=== PATIENT | female | born 1960 | race Caucasian/White ===

== ENCOUNTER → 2016-05-20 | Outpatient (CLI) | payer BC ==
[~2016-05-20] MED LIST: ASPI-482 PO; ATOR40TA PO; INSU100C SQ; INSU100V13 SQ; LIRA0.6P2 SQ; METF10002 PO
--- NOTE | 2016-05-20 08:55 | KCIC ---
PROCEDURE DEXA scan 05/20/2016 HISTORY Postmenopausal female. Risk factors for osteoporosis. TECHNIQUE DEXA of the lumbar spine and left hip was performed. FINDINGS The mean bone mineral density of the lumbar spine is 0.867 grams/centimeters squared. This corresponds to a T-score of-1.6. This is consistent with mild to moderate osteopenia. The mean bone mineral density of the left hip is 1.019 grams/centimeters squared. This corresponds to a T-score of 0.6. This is within normal limits. IMPRESSION 1. The mean bone mineral density of the left hip is within normal limits. 2. Mild to moderate osteopenia of the lumbar spine. Electronically signed by: Isacc Richards MD (May 20, 2016 08:54:15)
== END | disposition home or self-care (01) ==
LOC: KCIC DEXA 07:54
PROVIDERS: ATTEND Internal Medicine
DX: Z13.820 Encounter for screening for osteoporosis (principal); Z78.0 Asymptomatic menopausal state; E11.9 Type 2 diabetes mellitus without complications; M85.80 Other specified disorders of bone density and structure, unspecified site
CPT/HCPCS: 77080

== ENCOUNTER 2016-08-24 16:22 | Emergency (ER) | payer BC ==
[~2016-08-24] VITALS: Ht 152.4 cm; Wt 82.1 kg
[2016-08-24 17:09] VITALS: BP 154/80
--- NOTE | 2016-08-24 17:28 | PHYS DOC ---
Past Medical History Past Medical History: No Pertinent History Past Surgical History: Appendectomy, Cholecystectomy Alcohol Use: None Drug Use: None Adult General Chief Complaint Chief Complaint: FOOT INJURY PAIN HPI HPI Patient is a 55 year old female presents emergency department stating that she was walking in the yard when she cut her foot in a hole and twisted her left ankle. Patient states she has been unable to ambulate on the ankle since this occurred. She has not been able to put any weight on the foot. She denies any numbness or tingling into the toes. She does have good sensation peripheral pulses are 2+ cap refill brisk less than 2 seconds. All information was obtained through stretch box tender at bedside. Review of Systems Review of Systems Constitutional: Denies fever or chills [] Eyes: Denies change in visual acuity, redness, or eye pain [] HENT: Denies nasal congestion or sore throat [] Respiratory: Denies cough or shortness of breath [] Cardiovascular: No additional information not addressed in HPI [] GI: Denies abdominal pain, nausea, vomiting, bloody stools or diarrhea [] : Denies dysuria or hematuria [] Musculoskeletal: Denies back pain. Left ankle and foot pain. Denies knee pain Integument: Denies rash or skin lesions [] Neurologic: Denies headache, focal weakness or sensory changes [] Current Medications Current Medications Current Medications Medications (Trade) Dose Ordered Sig/Scott Start Time Stop Time Status Last Admin Dose Admin Ibuprofen (Motrin) 600 mg 1X ONCE 08/24/16 17:30 08/24/16 17:31 DC 08/24/16 17:33 600 MG Allergies Allergies Allergies Coded Allergies Type Severity Reaction Last Updated Verified No Known Drug Allergies 08/24/16 No Physical Exam Physical Exam Constitutional: Well developed, well nourished, no acute distress, non-toxic appearance. [] HENT: Normocephalic, atraumatic, bilateral external ears normal, oropharynx moist, no oral exudates, nose normal. [] Eyes: PERRLA, EOMI, conjunctiva normal, no discharge. [] Neck: Normal range of motion, no tenderness, supple, no stridor. [] Cardiovascular:Heart rate regular rhythm, no murmur [] Lungs & Thorax: Bilateral breath sounds clear to auscultation [] Skin: Warm, dry, no erythema, no rash. [] Back: No tenderness Extremities: Left ankle and foot tenderness, no cyanosis, no clubbing, ROM intact, no edema. Slight swelling noted. No discoloration or bruising noted. Peripheral pulses 2+ cap refill brisk less than 2 seconds. Neurologic: Alert and oriented X 3, normal motor function, normal sensory function, no focal deficits noted. [] Psychologic: Affect normal, judgement normal, mood normal. [] Current Patient Data Vital Signs Vital Signs Date Time Temp Pulse Resp B/P Pulse Ox O2 Delivery O2 Flow Rate FiO2 08/24/16 17:09 98.4 84 20 99 Room Air 98.4 EKG EKG [] Radiology/Procedures Radiology/Procedures [] Course & Med Decision Making Course & Med Decision Making Pertinent Labs and Imaging studies reviewed. (See chart for details) Ankle and foot x-ray were negative per Dr. Donaldson. Patient will be placed in Matteo wrap and an Air-Stirrup splint for support. Patient will be recommended to use ibuprofen 800 mg every 8 hours with food for pain and discomfort. Ice packs on 20 minutes off 20 minutes several times a day elevation as much as possible. The be provided with orthopedic name and number to follow up with. Signs symptoms to return back to emergency department as been provided. Patient agrees with discharge instructions treatment regimens and follow-up recommendations. Discharge instructions was provided to stretch box tender at bedside. [] Dragon Disclaimer Dragon Disclaimer This electronic medical record was generated, in whole or in part, using a voice recognition dictation system. Departure Departure Impression: Primary Impression: Left ankle sprain Additional Impression: Sprain of left foot Disposition: 01 HOME, SELF-CARE Condition: STABLE Referrals: KYM POTTER MD (PCP) YING CONDON MD Patient Instructions: Ankle Sprain, [id number], Foot Sprain-Brief Additional Instructions: Evaluation of your ankle and foot were negative for any fractures or dislocations. Ibuprofen 800 mg every 8 hours with food stop taking if he developed upset stomach. Wear the Matteo wrap for the next 5-7 days in the Air-Stirrup splint for the next 7 -10 days. Ice packs on 20 minutes off 20 minutes several times a day. Elevation as much as possible. Follow-up with orthopedic in the next week. Return back to emergency prior signs and symptoms of become worse. Problem Qualifiers DAMEON CHAVEZ [employer]IE[employer] OF [employer]ODUCTION Aug 24, 2016 17:28
[2016-08-24] MEDS ORDERED: IBUPROFEN 600 MG TABLET. PO ONE (17:30)
--- NOTE | 2016-08-25 08:00 | RAD ---
Left foot, 3 views, 08/24/2016: History: Twisting injury No fracture or dislocation is identified. There is mild degenerative change at the first MTP joint with minimal periarticular calcification. There is mild subcutaneous edema about the foot. IMPRESSION: No acute bony abnormality is detected. Left ankle, 3 views, 08/24/2016: No fracture or dislocation is identified. There is mild soft tissue swelling laterally.
== END 2016-08-24 18:52 | disposition home or self-care (01) ==
LOC: ER 16:22
DX: S93.402A Sprain of unspecified ligament of left ankle, initial encounter (principal); S93.602A Unspecified sprain of left foot, initial encounter; X50.0XXA Overexertion from strenuous movement or load, initial encounter; Y93.89 Activity, other specified; Y92.89 Other specified places as the place of occurrence of the external cause; Y99.8 Other external cause status
CPT/HCPCS: 73610; 73630; 99284

== ENCOUNTER → 2017-08-31 | Outpatient (CLI) | payer OTHER | END | disposition home or self-care (01) | LOC: MAMMO 09:16 | DX: R92.8 Other abnormal and inconclusive findings on diagnostic imaging of breast (principal) | CPT/HCPCS: 76641; 77066 ==

== ENCOUNTER → 2017-09-20 | Outpatient (CLI) | payer OTHER ==
[~2017-09-20] MED LIST changes: -ASPI-482 PO; -ATOR40TA PO; -INSU100C SQ; -INSU100V13 SQ; +LIDOCAINE 1% Multi-Dose 50 ML VIAL. INJ; -LIRA0.6P2 SQ; -METF10002 PO
== END | disposition home or self-care (01) ==
LOC: US 12:52
DX: C50.911 Malignant neoplasm of unspecified site of right female breast (principal); I10 Essential (primary) hypertension; E11.9 Type 2 diabetes mellitus without complications; Z90.49 Acquired absence of other specified parts of digestive tract
CPT/HCPCS: 19081; 19083; 76942; 77065; 88305; 88361; C1713

== ENCOUNTER 2017-10-07 05:44 | Observation (INO) | payer OTHER ==
[2017-10-07 06:34] LABS: POC GLUCOSE 154 mg/dL (70-99)
[2017-10-07] MEDS: IV RINGERS,LACTATED 1000ML 1,000 ML IV (06:34)
[2017-10-07] MEDS ORDERED: LIDOCAINE 1% PF 2 ML VIAL. ID (07:00)
[2017-10-07] MEDS ORDERED: MORPHINE SULFATE 4 MG/ML DISP.SYRIN. IV (07:00)
[2017-10-07] MEDS ORDERED: ONDANSETRON PF 4 MG/2 ML VIAL. IV ×2 (07:00→10:00)
[2017-10-07] MEDS ORDERED: LIDOCAINE 2% PF Vial for OR 5 ML VIAL. (07:44)
[2017-10-07] MEDS ORDERED: PROPOFOL 20 ML IV (07:44)
[2017-10-07] MEDS ORDERED: DEXAMETHASONE SOD PHOS 20 MG/5 ML VIAL. (07:44)
[2017-10-07] MEDS ORDERED: ONDANSETRON PF 4 MG/2 ML VIAL. ×2 (07:44→08:17)
[2017-10-07] MEDS ORDERED: fentaNYL PF VIAL 100 MCG/2 ML VIAL (07:45)
[2017-10-07] MEDS ORDERED: MIDAZOLAM HCL/PF 2 MG/2 ML VIAL. (07:45)
[2017-10-07] MEDS: LIDOCAINE WITH 8.4% SOD BICARB 3 ML DISP.SYRIN. INJ (07:48)
[2017-10-07] MEDS ORDERED: SCOPOLAMINE 1.5MG PATCH. TD (08:10)
[2017-10-07] MEDS: SCOPOLAMINE 1.5MG PATCH. TD (08:30)
[2017-10-07] MEDS: ISOSULFAN BLUE 50 MG/5 ML VIAL. SQ (08:32)
[2017-10-07] MEDS: BUPIVACAINE-EPI 0.25%-1:200000 50 ML VIAL. (08:32)
[2017-10-07] MEDS ORDERED: ePHEDrine PF IN SALINE 50 MG/5 ML DISP.SYRIN IV (08:42)
[2017-10-07] MEDS ORDERED: SEVOFLURANE 61 TO 120 MINUTES. IH (09:45)
[2017-10-07] MEDS ORDERED: 0.9 % SODIUM CHLORIDE 10 ML DISP.SYRIN. IV (10:00)
[2017-10-07] MEDS ORDERED: oxyCODONE/APAP 5/325 1 TAB TABLET PO (10:00)
[2017-10-07] MEDS: fentaNYL PF VIAL 100 MCG/2 ML VIAL IV ×3 (10:18→10:45)
[2017-10-07] MEDS: INSULIN ASPART 100 UNIT/ML 10ML VIAL. SQ (10:28)
[2017-10-07] MEDS: PROCHLORPERAZINE 10 MG/2 ML VIAL. IV (10:31)
[2017-10-07 11:13] LABS: POC GLUCOSE 194 mg/dL (70-99)
[2017-10-07 11:57] LABS: POC GLUCOSE 191 mg/dL (70-99)
[2017-10-07] MEDS ORDERED: ceFAZolin 2GM PREMIX 2 GM/50 ML BAG IV (12:00)
[2017-10-07] MEDS: KETOROLAC 15 MG/ML VIAL. IV ×3 (12:26→23:45)
[2017-10-07] MEDS: oxyCODONE/APAP 5/325 1 TAB TABLET PO (13:09)
[2017-10-07] MEDS: IV DEXTROSE 5%-LACT RINGERS 1,000 ML IV (13:10)
[2017-10-07 17:17] LABS: POC GLUCOSE 372 mg/dL (70-99)
[2017-10-07] MEDS: INSULIN LISPRO 300 UNITS/3 ML INSULN.PEN. SQ ×2 (17:30→17:31)
[2017-10-07] MEDS ORDERED: DEXTROSE 50% 25 GM / 50ML DISP.SYRIN. IV (17:30)
[2017-10-07 21:05] LABS: POC GLUCOSE 241 mg/dL (70-99)
[2017-10-07] MEDS: ATORVASTATIN CALCIUM 20 MG TABLET PO (22:10)
[2017-10-07] MEDS: INSULIN GLARGINE 300 UNITS/3 ML INSULN.PEN. SQ (22:13)
[2017-10-08] MEDS: KETOROLAC 15 MG/ML VIAL. IV ×2 (05:07→12:19)
[2017-10-08 07:43] LABS: POC GLUCOSE 122 mg/dL (70-99)
[2017-10-08] MEDS: INSULIN LISPRO 300 UNITS/3 ML INSULN.PEN. SQ ×4 (08:22→12:20)
[2017-10-08] MEDS ORDERED: NON FORMULARY ITEM (Liraglutide (Victoza 3-Pak) 1.8 MG) SQ (09:00)
[2017-10-08] MEDS: LISINOPRIL 20 MG TABLET PO (09:11)
[2017-10-08] MEDS: oxyCODONE/APAP 5/325 1 TAB TABLET PO (11:22)
[2017-10-08 12:01] LABS: POC GLUCOSE 114 mg/dL (70-99)
== END 2017-10-08 12:20 | disposition home health service (06) ==
LOC: SURG 05:44 → 4 NORTH 10:00
PROVIDERS: Surgery
DX: C50.911 Malignant neoplasm of unspecified site of right female breast (principal); Z79.899 Other long term (current) drug therapy; Z90.11 Acquired absence of right breast and nipple
CPT/HCPCS: 19303; 38792; 82962; 96372; 96374; A7015; A9541; G0378; G0379; J0690; J0780; J1100; J1815; J1885; J2250; J2405; J2704; J3010; J7030; Q9968

== ENCOUNTER → 2019-12-27 | Outpatient (CLI) | payer OTHER ==
[2017-10-08 11:00] VITALS: BP 123/56
[~2019-12-27] MED LIST changes: +ASPI-482 PO; +ATOR40TA PO; +INSU100C SQ; +INSU100V13 SQ; -LIDOCAINE 1% Multi-Dose 50 ML VIAL. INJ; +LIRA0.6P2 SQ; +LISI-334 PO; +METF10007 PO; +OMEG10005 PO
--- NOTE | 2019-12-28 14:58 | RAD ---
DATE: 12/27/2019 9:06 AM EXAM: DIGITAL DIAGNOSTIC LT HISTORY: Personal history right breast cancer 2018 with mastectomy. Patient is due for screening. COMPARISON: 08/31/2017, 11/06/2010 Left full field craniocaudal and mediolateral oblique images were obtained using digital technique. FINDINGS: Breast Density: SCATTERED The breast parenchyma shows scattered fibroglandular densities. Breast parenchyma level B Unchanged left nipple inversion No suspicious masses, microcalcifications or architectural distortion is present to suggest malignancy in either breast. The visualized axillae are unremarkable. IMPRESSION: No mammographic evidence of malignancy. BI-RADS CATEGORY: 1 NEGATIVE RECOMMENDED FOLLOW-UP: 12M 12 MONTH FOLLOW-UP Annual screening mammography is recommended, unless clinically indicated sooner based on symptoms or change in physical exam. PQRS compliance statement: Patient information was entered into a reminder system with a target due date for the next mammogram. Mammography is a sensitive method for finding small breast cancers, but it does not detect them all and is not a substitute for careful clinical examination. A negative mammogram does not negate a clinically suspicious finding and should not result in delay in biopsying a clinically suspicious abnormality. "Our facility is accredited by the [employer] Mammography Program."
== END | disposition home or self-care (01) ==
LOC: MAMMO 08:57
PROVIDERS: ATTEND Family Medicine
DX: R92.2 Inconclusive mammogram (principal); Z85.3 Personal history of malignant neoplasm of breast; Z90.11 Acquired absence of right breast and nipple
CPT/HCPCS: 77065